=== PATIENT | female | born 1975 | race Hispanic/Latino ===

== ENCOUNTER 2018-05-03 03:43 | Emergency (ER) | payer BC ==
[2018-05-03 04:29] LABS: Urine Blood NEGATIVE (NEG); Urine Glucose NEGATIVE (NEG); Urine Protein NEGATIVE (NEG); Urine Specific Gravity 1.015 (1.005-1.030)
[2018-05-03 05:23] LABS: Absolute Lymphocytes (CBC) 2.1 K/uL (0.7-4.9); Absolute Monocytes 0.7 K/uL (0.1-1.3); Absolute Neutrophil 10.1 K/uL (1.8-8.0); Basophils % 0.6 % (0-1.3); Hematocrit 30.9 % (36.0-45.0); Lymphocytes % 15.9 % (15.3-44.8); MPV 7.3 fL (7.6-11.3); Monocytes % 5.6 % (3.3-12.3); RBC Red Blood Cell Count 4.09 M/uL (3.86-4.86)
[2018-05-03] MEDS ORDERED: NA CHLORIDE 0.9% 1,000 ML ONE (05:27)
[2018-05-03] MEDS ORDERED: KETOROLAC 30 MG/ML INJ ONE (05:27)
[2018-05-03 05:37] LABS: BUN Blood Urea Nitrogen 8 mg/dL (7-18); Bicarbonate 24 mmol/L (21-32); Glucose Level 108 mg/dL (74-106); Potassium 4.2 mmol/L (3.5-5.1); Sodium Level 138 mmol/L (136-145)
[2018-05-03] MEDS ORDERED: HYDROCODONE/APAP 10/325 TAB ONE (06:21)
--- NOTE | 2018-05-03 06:39 | EDPHYS ---
Physician Documentation [facility] Name: Ivonne Vegas Age: 42 yrs Sex: Female : 1975 Arrival Date: 05/03/2018 Time: 03:47 Bed 20 Private MD: ED Physician Lamonte Hahn HPI: 05/03 06:36 This 42 yrs old Female presents to ER via Ambulatory with complaints of gs Abdominal Pain, Back Pain. 06:36 The patient presents with pain that is acute. The symptoms are located in the low back. gs Onset: The symptoms/episode began/occurred yesterday. The pain radiates to the left lower quadrant. Associated signs and symptoms: Pertinent negatives: fever, vomiting. Severity of symptoms: At their worst the symptoms were moderate, in the emergency department the symptoms are unchanged. The patient has experienced similar episodes in the past, a few times. 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 - Social history:: Smoking status: Patient/guardian denies using tobacco, Patient/guardian denies using alcohol. - Ebola Screening: : No symptoms or risks identified at this time. ROS: 06:36 All other systems are negative. gs Exam: 06:36 Head/Face: Normocephalic, atraumatic. Eyes: Pupils equal round and reactive to light, gs extra-ocular motions intact. Lids and lashes normal. Conjunctiva and sclera are non-icteric and not injected. Cornea within normal limits. Periorbital areas with no swelling, redness, or edema. ENT: Nares patent. No nasal discharge, no septal abnormalities noted. Tympanic membranes are normal and external auditory canals are clear. Oropharynx with no redness, swelling, or masses, exudates, or evidence of obstruction, uvula midline. Mucous membranes moist. Neck: Trachea midline, no thyromegaly or masses palpated, and no cervical lymphadenopathy. Supple, full range of motion without nuchal rigidity, or vertebral point tenderness. No Meningismus. Chest/axilla: Normal chest wall appearance and motion. Nontender with no deformity. No lesions are appreciated. Cardiovascular: Regular rate and rhythm with a normal S1 and S2. No gallops, murmurs, or rubs. Normal PMI, no JVD. No pulse deficits. Respiratory: Lungs have equal breath sounds bilaterally, clear to auscultation and percussion. No rales, rhonchi or wheezes noted. No increased work of breathing, no retractions or nasal flaring. Abdomen/GI: Soft, non-tender, with normal bowel sounds. No distension or tympany. No guarding or rebound. No evidence of tenderness throughout. Skin: Warm, dry with normal turgor. Normal color with no rashes, no lesions, and no evidence of cellulitis. MS/ Extremity: Pulses equal, no cyanosis. Neurovascular intact. Full, normal range of motion. Neuro: Awake and alert, GCS 15, oriented to person, place, time, and situation. Cranial nerves II-XII grossly intact. Motor strength 5/5 in all extremities. Sensory grossly intact. Cerebellar exam normal. Normal gait. 06:36 Constitutional: The patient appears alert, awake. 06:36 Back: CVA tenderness, that is moderate, is noted on the left. Vital Signs: 03:50 BP 153 / 77; Pulse 106; Resp 18; Temp 98.6(O); Pulse Ox 97% on R/A; Weight 97.52 kg jb4 (R); Height 5 ft. 1 in. (154.94 cm) (R); Pain 9/10; 05:48 BP 128 / 72; Pulse 102; Resp 18; Pulse Ox 96% on R/A; tl2 07:00 BP 128 / 72; Pulse 96; Resp 18; Pulse Ox 98% on R/A; tl2 03:50 Body Mass Index 40.62 (97.52 kg, 154.94 cm) jb4 MDM: 04:33 Patient medically screened. gs 06:36 Differential diagnosis: sprain, Ureterolithiasis. Data reviewed: vital signs, nurses gs notes. 05/03 04:23 Order name: Urine Dipstick--Ancillary (enter results); Complete Time: 04:33 oe 05/03 04:23 Order name: Urine --Ancillary (enter results); Complete Time: 04:33 oe 05/03 04:33 Order name: CBC with Diff; Complete Time: 05:45 gs 05/03 04:33 Order name: Basic Metabolic Panel; Complete Time: 05:45 gs 05/03 04:33 Order name: CT Stone Protocol gs 05/03 04:15 Order name: Urine Test (obtain specimen); Complete Time: 04:15 oe 05/03 04:15 Order name: Urine Dipstick-Ancillary (obtain specimen); Complete Time: 04:15 oe Administered Medications: 05:21 Drug: TORadol 15 mg Route: IVP; Site: left antecubital; tl2 06:00 Follow up: Response: No adverse reaction; Pain is unchanged, physician notified tl2 05:21 Drug: NS 0.9% 1000 ml Route: IV; Rate: 1000 ml; Site: left antecubital; tl2 07:02 Follow up: IV Status: Completed infusion; IV Intake: 1000ml tl2 06:21 Drug: [place] 10 mg-325 mg 1 tabs Route: PO; tl2 07:03 Follow up: Response: No adverse reaction; Medication administered at discharge. tl2 Disposition: 05/03/18 06:39 Discharged to Home. 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 - Condition is Stable. - Discharge Instructions: Back Pain, Adult. - Prescriptions for Naprosyn 500 mg Oral Tablet - take 1 tablet by ORAL route 2 times per day take with food; 20 tablet. Tylenol- Codeine #3 300-30 mg Oral Tablet - take 2 tablets by ORAL route every 6 hours As needed; 12 tablet. - Medication Reconciliation Form, Thank You Letter, Antibiotic Education, Prescription Opioid Use form. - Follow up: Private Physician; When: 2 - 3 days; Reason: Re-evaluation by your physician. Signatures: Dispatcher [employer] EDGail Resendez RN RN tl2 Dave Osei RN RN jb4 Rian Bennett Gregory, MD MD gs Corrections: (The following items were deleted from the chart) 06:47 06:39 05/03/2018 06:39 Discharged to Home. Impression: Low back pain. Condition is gs Stable. Forms are Medication Reconciliation Form, Thank You Letter, Antibiotic Education, Prescription Opioid Use. Follow up: Private Physician; When: 2 - 3 days; Reason: Re-evaluation by your physician. gs 07:03 06:47 05/03/2018 06:39 Discharged to Home. Impression: Low back pain; Other benign tl2 neoplasm of other parts of uterus. Condition is Stable. Discharge Instructions: Back Pain, Adult. Prescriptions for Naprosyn 500 mg Oral Tablet - take 1 tablet by ORAL route 2 times per day take with food; 20 tablet, Tylenol-Codeine #3 300-30 mg Oral Tablet - take 2 tablets by ORAL route every 6 hours As needed; 12 tablet. and Forms are Medication Reconciliation Form, Thank You Letter, Antibiotic Education, Prescription Opioid Use. Follow up: Private Physician; When: 2 - 3 days; Reason: Re-evaluation by your physician.
--- NOTE | 2018-05-03 06:39 | ER ---
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 It is mainly on my left side and in my private area. When I have to urinate it does not hurt it just feels like a pressure that is uncomfortable. 03:50 Transition of care: patient was not received from another setting of care. Onset of jb4 symptoms was May 02, 2018. Risk Assessment: Do you want to hurt yourself or someone else? Patient reports no desire to harm self or others. Initial Sepsis Screen: Does the patient meet any 2 criteria? No. Patient's initial sepsis screen is negative. Does the patient have a suspected source of infection? No. Patient's initial sepsis screen is negative. Care prior to arrival: None. 03:50 Method Of Arrival: Ambulatory jb4 03:50 Acuity: PITA 3 jb4 Triage Assessment: 03:50 General: Appears in no apparent distress. uncomfortable, Behavior is calm, cooperative, jb4 appropriate for age. Pain: Complains of pain in suprapubic area, right lower quadrant and left lower quadrant Pain radiates to low back area Pain currently is 9 out of 10 on a pain scale. Quality of pain is described as pressure, Pain began 1 day ago. EENT: No signs and/or symptoms were reported regarding the EENT system. Neuro: Level of Consciousness is awake, alert, obeys commands, Oriented to person, place, time, situation. Cardiovascular: Patient's skin is warm and dry. Respiratory: Airway is patent Respiratory effort is even, unlabored, Respiratory pattern is regular, symmetrical. GI: Abdomen is non-distended, obese, Abd is soft X 4 quads Abd is non tender in right upper quadrant and left upper quadrant Abdomen is tender to palpation in suprapubic area, posterior aspect of right lateral abdomen, posterior aspect of left lateral abdomen, right lower quadrant and left lower quadrant. : Reports pain in right in left in suprapubic area flank(s), lower quadrant(s) in lower back. Derm: Skin is intact, Skin is pink, warm \T\ dry. Musculoskeletal: Circulation, motion, and sensation intact. 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 - Social history:: Smoking status: Patient/guardian denies using tobacco, Patient/guardian denies using alcohol. - Ebola Screening: : No symptoms or risks identified at this time. Screenin:50 Abuse screen: Denies threats or abuse. Nutritional screening: No deficits noted. jb4 Tuberculosis screening: No symptoms or risk factors identified. Fall Risk None identified. Assessment: 03:50 General: see triage assessment.. jb4 04:00 GI: Bowel sounds present X 4 quads. jb4 05:15 Reassessment: Patient appears in no apparent distress at this time. Patient and/or tl2 family updated on plan of care and expected duration. Pain level reassessed. Patient is alert, oriented x 3, equal unlabored respirations, skin warm/dry/pink. pt returned from CT, will attempt IV access and administer meds. 05:48 Reassessment: Patient appears in no apparent distress at this time. pt continues to be tl2 in pain, MD notified. Awaiting further orders. 07:00 Reassessment: Patient appears in no apparent distress at this time. Patient and/or tl2 family updated on plan of care and expected duration. Pain level reassessed. Patient is alert, oriented x 3, equal unlabored respirations, skin warm/dry/pink. Pt verbalized understanding of discharge instructions, need for follow up and prescription usage. Vital Signs: 03:50 BP 153 / 77; Pulse 106; Resp 18; Temp 98.6(O); Pulse Ox 97% on R/A; Weight 97.52 kg jb4 (R); Height 5 ft. 1 in. (154.94 cm) (R); Pain 9/10; 05:48 BP 128 / 72; Pulse 102; Resp 18; Pulse Ox 96% on R/A; tl2 07:00 BP 128 / 72; Pulse 96; Resp 18; Pulse Ox 98% on R/A; tl2 03:50 Body Mass Index 40.62 (97.52 kg, 154.94 cm) jb4 ED Course: 03:47 Patient arrived in ED. es 03:50 Arm band placed on right wrist. jb4 03:50 Patient has correct armband on for positive identification. Bed in low position. Call jb4 light in reach. Side rails up X 1. Pulse ox on. NIBP on. 03:59 Triage completed. jb4 04:20 Lamonte Hahn MD is Attending Physician. gs 04:[address] via wheelchair. kw1 04:59 CT completed. Patient tolerated procedure well. [facility] kw1 05:20 Gail Hills, RN is Primary Nurse. tl2 05:20 Inserted saline lock: 22 gauge in left antecubital area, using aseptic technique. Blood tl2 collected. 07:00 No provider procedures requiring assistance completed. IV discontinued, intact, tl2 bleeding controlled, No redness/swelling at site. Pressure dressing applied. Administered Medications: 05:21 Drug: TORadol 15 mg Route: IVP; Site: left antecubital; tl2 06:00 Follow up: Response: No adverse reaction; Pain is unchanged, physician notified tl2 05:21 Drug: NS 0.9% 1000 ml Route: IV; Rate: 1000 ml; Site: left antecubital; tl2 07:02 Follow up: IV Status: Completed infusion; IV Intake: 1000ml tl2 06:21 Drug: [place] 10 mg-325 mg 1 tabs Route: PO; tl2 07:03 Follow up: Response: No adverse reaction; Medication administered at discharge. tl2 Intake: 07:02 IV: 1000ml; Total: 1000ml. tl2 Outcome: 06:39 Discharge ordered by . 07:00 Discharged to home ambulatory, with family. tl2 07:00 Condition: stable 07:00 Discharge instructions given to patient, family, Instructed on discharge instructions, follow up and referral plans. medication usage, Demonstrated understanding of instructions, follow-up care, medications, Prescriptions given X 2. 07:03 Patient left the ED. tl2 Signatures: Dispatcher [employer] Halima Lopez Taylor, RN RN tl2 Dave Osei RN RN jb4 Lamonte Hahn MD MD gs Wilhelm, Kimberly kw1 Corrections: (The following items were deleted from the chart) 05:07 05:04 In radiology for Stone Protocol+CT.[email or web address].[email or web address]. ARSALAN kw1
--- NOTE | 2018-05-03 09:54 | RAD REPORT ---
EXAM DESCRIPTION: CT - Stone Protocol - 05/03/2018 6:51 am CLINICAL HISTORY: Flank pain. ABD PAIN COMPARISON: No comparisons TECHNIQUE: Axial images were obtained without oral or IV contrast. Lack of contrast limits solid org an and vascular assessment. The [id number] spans the entirety of the system partially obscuring uppermost abdomen and lung bases. Coronal reformatted images were obtained and reviewed. All CT scans are performed using dose optimization technique as appropriate and may include automated exposure control or mA/KV adjustment according to patient size. FINDINGS: The lower lung kruse are clear. Imaged portions of the liver and spleen show no suspicious findings on non-contrast imaging. The panc reas and adrenal glands are normal. No pathologic lymphadenopathy in the abdomen or pelvis. No urinary tract stones or obstructive uropathy. No bowel obstruction, free air, free fluid or abscess. Normal appendix noted. No significant bony abnormality. Enlarged 11 x 11 cm pelvic structures noted which may be an enlarged uterus or ovarian mass. IMPRESSION: No urinary tract stones or obstructive uropathy. 11 cm rounded structure in the pelvis compressing the urinary bladder. This may represent an abnormal ly enlarged uterus or an ovarian mass. Recommend follow-up pelvic ultrasound or pelvic MRI assessment .
== END 2018-05-03 07:03 | disposition home or self-care (01) ==
LOC: ER 03:43
DX: D26.9 Other benign neoplasm of uterus, unspecified (principal)
CPT/HCPCS: 36415; 74176; 76377; 80048; 81003; 81025; 85025; 96361; 96374; 99284; J7030

== ENCOUNTER 2019-06-02 07:50 | Day surgery (SDC) | payer OTHER, BC ==
[2019-06-02] MEDS ORDERED: Ringers Lactate 1,000 ML IV ONE (08:18)
[2019-06-02] MEDS ORDERED: propofoL 200 MG/20 ML VIAL IV ONE (09:16)
[2019-06-02] MEDS ORDERED: FENTANYL CITR 100 MCG/2 ML ONE (09:16)
[2019-06-02] MEDS ORDERED: LIDOCAINE 2% MPF 5 ML VIAL ONE (09:18)
[2019-06-02] MEDS ORDERED: MIDAZOLAM HCL 2 MG/2 ML INJ ONE (09:19)
[2019-06-02] MEDS ORDERED: ONDANSETRON 4 MG/2 ML VIAL ONE (09:20)
[2019-06-02] MEDS ORDERED: LIDOCAINE 1% W/EPI 1:100,000 MDV 50 ML VIAL ONE (09:44)
[2019-06-02] MEDS ORDERED: KETOROLAC 30 MG/ML INJ ONE (10:09)
[2019-06-02] MEDS ORDERED: NA CHLORIDE 0.9% 1,000 ML ONE (10:32)
[2019-06-02 12:22] VITALS: BP 153/81; TEMP 97.7; O2SAT 98
--- NOTE | 2019-06-06 03:54 | OP ---
Date of Procedure: 06/02/2019 Surgeon: Angela Wilson MD Preoperative Diagnosis: Menorrhagia. Postoperative Diagnosis: Menorrhagia. Procedure Performed: Hysteroscopy, dilation and curettage. Anesthesia: MAC plus paracervical block. Specimens: Endometrial curettings. Complications: No complications. Drains: No drains. Condition: Stable. Indications: Patient is a 43-year-old with abnormal uterine bleeding and fibroid uterus, enlarged si gnificantly. On lab work, TSH, FSH all normal. Hemoglobin low at 9.5. Sampling prior to definitive treatment was recommended. She had a 7 cm leiomyoma, started on iron b.i.d. Due to problems with t he fibroid and possible difficulty in performing the hysteroscopy, she was brought to the hospital. Description Of Procedure: After informed consent was verified, she was taken back to the OR, placed in a supine fashion on the operating table. After MAC was given, she was placed in dorsal lithotomy position. Pelvic exam was performed, the uterus was enlarged, but mobile. No adnexal masses were no david. Speculum was placed to expose the cervix. Anterior lip injected with 1% lidocaine mixed with 1 :100,000 epinephrine 5 mL was given. Two Allis clamps were placed on the anterior lip at 5 and 10 o' clock positions of cervicovaginal junction. Paracervical block with another 5 mL to 7 mL of the same solution was given. Prepped x3 with Betadine was done. Slimline diagnostic hysteroscope was used t o enter the uterine cavity by traversing through the cervical canal under direct vision. The cavity was empty. Endometrium appeared to be thickened. Both tubal ostia visualized. Cavity undistorted. No impression of the fibroid into the cavity. The scope was removed and endometrial curettings were performed. There was a large amount of tissue that was retrieved. All instruments were removed ins trument. Instrument, needle, and sponge counts were correct at the end of the case. Specimen was whitehead nded off for permanent pathology. She was recovered from anesthesia in the OR and taken to the health system zoë room without any problems. She will follow up with me in 1 week and we will decide on further lopez rgery. MIRIAM/MARIA Voice ID: [id number] Report ID: [id number]
== END 2019-06-02 11:40 | disposition home or self-care (01) ==
LOC: OR 07:50
PROVIDERS: ATTEND Obstetrics & Gynecology
PROC: 0UJD8ZZ Inspection of Uterus and Cervix, Via Natural or Artificial Opening Endoscopic (ICD-10-PCS; 2019-06-02)
PROC: 0UDB7ZX Extraction of Endometrium, Via Natural or Artificial Opening, Diagnostic (ICD-10-PCS; principal; 2019-06-02 10:30)
DX: N85.01 Benign endometrial hyperplasia (principal); D50.0 Iron deficiency anemia secondary to blood loss (chronic); Z90.49 Acquired absence of other specified parts of digestive tract; Z82.3 Family history of stroke
CPT/HCPCS: 58558; 81025; 88305; J2704; J2250; J3010; J7120; J7030; J2405

== ENCOUNTER 2019-11-24 06:19 | Day surgery (SDC) | payer OTHER, BC ==
[2019-11-18 11:56] LABS: Absolute Lymphocytes (CBC) 2.3 K/uL (0.7-4.9); Hematocrit 37.3 % (36.0-45.0); Lymphocytes % 26.1 % (15.3-44.8); RBC Red Blood Cell Count 4.46 M/uL (3.86-4.86)
[2019-11-18 12:11] LABS: Urine Appearance CLEAR; Urine Bilirubin NEGATIVE (NEG); Urine Blood NEGATIVE (NEG); Urine Color YELLOW; Urine Glucose NEGATIVE (NEG); Urine Protein NEGATIVE (NEG); Urine Specific Gravity >=1.030 (1.005-1.030); Urine Urobilinogen 0.2 mg/dL (0.2-1.0); Urine pH 5.5 (5.0-7.0)
[2019-11-18 12:14] LABS: Urine Microscopic Reflex NO UMIC
[2019-11-18 12:19] LABS: Albumin 3.6 g/dL (3.4-5.0); Bilirubin Total 0.2 mg/dL (0.2-1.0); Potassium 3.8 mmol/L (3.5-5.1); Protein, Total 7.8 g/dL (6.4-8.2)
--- NOTE | 2019-11-22 15:38 | EKG ---
Test Date: 2019-11-18 Test Time: 11:05:28 Mergers And Acquisitions Manager: KYLEE MEASUREMENT RESULTS: Intervals: Rate: 78 ME: 150 QRSD: 82 QT: 384 QTc: 437 Fowler: P: 24 ME: 150 QRS: 47 T: 63 INTERPRETIVE STATEMENTS: Normal sinus rhythm Normal ECG No previous ECG available for comparison Electronically Signed On 11-22-19 15:38:09 CDT by Michael Zee
[2019-11-24 06:58] LABS: Specific Gravity 1.025 (1.005-1.030)
[2019-11-24] MEDS ORDERED: Ringers Lactate 1,000 ML IV ONE ×2 (07:04→07:07)
[2019-11-24] MEDS ORDERED: SCOPOLAMINE HYDROBROMIDE PATCH TD ONE (07:04)
[2019-11-24] MEDS ORDERED: BUPIVACAINE 0.25% PF 30 ML VIAL ONE (07:07)
[2019-11-24] MEDS ORDERED: ROCURONIUM 50 MG/5 ML VIAL IV ONE (07:30)
[2019-11-24] MEDS ORDERED: KETOROLAC 30 MG/ML INJ ONE (07:30)
[2019-11-24] MEDS ORDERED: MIDAZOLAM HCL 2 MG/2 ML INJ ONE (07:30)
[2019-11-24] MEDS ORDERED: FENTANYL CITR 250 MCG/5 ML ONE (07:30)
[2019-11-24] MEDS ORDERED: propofoL 200 MG/20 ML VIAL IV ONE (07:30)
[2019-11-24] MEDS ORDERED: ONDANSETRON 4 MG/2 ML VIAL ONE ×2 (07:30→12:57)
[2019-11-24] MEDS ORDERED: dexAMETHasone 10 MG/ML VIAL ONE (07:30)
[2019-11-24] MEDS ORDERED: LIDOCAINE 2% MPF 5 ML VIAL ONE (07:30)
[2019-11-24] MEDS ORDERED: HEPARIN 5000 UNIT/ML 1 ML VIAL ONE (07:53)
[2019-11-24] MEDS ORDERED: CEFAZOLIN/SWI 2gm 2 GM/20 ML SYR ONE (07:53)
[2019-11-24] MEDS ORDERED: NS 0.9% VIAL 10 ML ONE (09:32)
[2019-11-24] MEDS ORDERED: VECURONIUM 10 MG/VIAL IV ONE (09:32)
[2019-11-24] MEDS ORDERED: GLYCOPYRROLATE 0.2 MG/ML SYR ONE (10:31)
[2019-11-24] MEDS ORDERED: NEOSTIGMINE 1 MG/ML -5 ML ONE (10:31)
[2019-11-24] MEDS ORDERED: LABETALOL 20 MG/4ML SYRINGE IV ONE (10:31)
[2019-11-24] MEDS ORDERED: MEPERIDINE HCL 25 MG/ML SYR ONE (10:31)
--- NOTE | 2019-11-24 13:10 | OP ---
Date of Procedure: 11/24/2019 Surgeon: Angela Wilson MD Target Network Analyst: Marisa Kim. Preoperative Diagnoses: Menorrhagia with leiomyomata and chronic iron deficiency anemia. Postoperative Diagnoses: Menorrhagia with leiomyomata and chronic iron deficiency anemia and uterine prolapse. Procedures Performed: Total laparoscopic hysterectomy, bilateral salpingectomy, vaginal morcellation for retrieval of the specimen, uterosacral suspension distally, and cystoscopy. Anesthesia: General endotracheal. Estimated Blood Loss: Minimal. Complications: No complications. Drains: None. Condition: Stable. Findings: Uterus enlarged, large leiomyomata anteriorly, but others present as well. Significant re ctocele and uterine descensus present. Point C was -4. Both ovaries were normal and left intact. Indication: The patient is a 44-year-old, who was evaluated for heavy bleeding, found to have fibroi ds. Endometrial sampling was performed. No atypia or malignancy of endometrium or leiomyosarcoma de tected on the Sampling. She was kept on oral iron. She had a transfusion in the past. Her iron has improved after the transfusion; however, continues to bleed very heavy. All the conservative treatm ent options including uterine artery embolization and Lupron were all reviewed with the patient, and myomectomy. Done with childbearing and wanted to proceed with a hysterectomy for definitive treatmen t, so she was consented and brought to the OR. Before preop appointment, she was identified to have intermittent left-sided chest pain and also with high blood pressure. Was seen by her primary care p faith, Dr. Cortes and was treated; however, the patient decided not to take her blood pressure medic ations because of her concerns regarding the relationship of that to her chest pain. After the Cardi ology consultation, she was cleared for surgery and she was counseled that it is important to take he r antihypertensives regularly and follow up with her primary care provider as well as Dr. Zee. Description Of Procedure: After informed consent was verified she was taken back to the OR, placed i n supine fashion on the operating table, general anesthesia given, placed in a dorsal lithotomy posit ion. 3 g of Ancef were given. 5000 units subcu of heparin were given as her platelet count was elev ated at 393 yesterday and it was over 400 earlier in the week. As compared to her past CBC, her plat elet count was in the same range. It was slightly elevated, so heparin subcu was given. SCDs were s tarted. Then abdomen, vulva, vagina, and perineum were prepped and draped in a sterile fashion. Exa mination was performed. Uterus anteflexed. Enlarge fibroids, uterus were palpated, moderately were rotated and almost 14-week size. The 7 cm fibroid identified on the ultrasound seemed to be on the fundus and on the left. Speculum placed to expose the cervix. Anterior lip grasped with 2 Allis clamps and the VCare, and la rge VCare introduced into place. Horner placed and connected with cysto tubing for retrograde filling . This area was draped. 1 cm supraumbilical incision made with a scalpel using the open laparoscopy technique. Fascia incise d and tagged with 0 Vicryl sutures. S-retractors were placed after entering the peritoneum bluntly. Adequate insufflation was performed and after visualizing the entire pelvic cavity, the patient was placed in Trendelenburg. Both sides anterior and posterior cul-de-sac were all free. No evidence of any endometriosis, so it was very feasible for a laparoscopic hysterectomy. Two 5 ports in the left and right lower quadrants were placed and a 10 port suprapubic after checking the ureter courses on both sides and they were undistorted, proceeded with surgery. The left tube was taken down with the LigaSure. Utero-ovarian ligament taken down, then round ligame nt taken down and broad ligament opened up. Anterior lip of the broad ligament was raised to raise t he bladder flap and the bladder was dissected inferiorly and posteriorly. Dissection performed to th e uterosacral on the left side. Then, the broad ligament was taken down to skeletonize the vessels. The vessels were cauterized with the bipolar basket tip and left in place without cutting and went o maxine to the opposite side to perform the suction. The fibroid had to be retracted in order for me to take the utero-ovarian ligament. Mesosalpinx, tube were removed. Round ligament was taken down. Po sterior broad ligament had to be dissected down to the level of the uterosacral insertion. Then, the anterior leaf of the broad ligament was opened up to connect to the bladder flap. Bladder was disse cted inferiorly over the vaginal cup. Then, vessels were isolated and skeletonized. They were taken down with the help of the basket tip and then cardinal ligaments were also taken down with the help of the basket tip. Then, the LigaSure was used to cauterize and cut again. Similar dissection perfo rmed on the opposite side as well. The uterine vessel had to be re-cauterized on the right side as I was not satisfied with the direction of the cut through the side port, so this was done through the suprapubic port and there was excellent hemostasis. Circumferential colpotomy performed with a monopolar hook blade. The specimen detached./ Then, flattened the patient out and vaginal morcellation was performed with 2 Deavers and Puga retrac tor in the posterior aspect. With a 10 blade using mass clamps, uterine wall was cut staying on top of the pardo. Gradually part of the fibroids in the posterior aspect had to be cut to fit the specim en through the opening. Then, once the largest fibroid was shelled out, then the specimen was retrie chet. The specimen was sent out for permanent pathology. Then, the vaginal occlusion was done with t he sponge and a glove. Thorough irrigation and suction of the cuff were performed. There was excellent hemostasis. Both ur eters had no evidence of any injury. The closure of the vagina was done with simple 0 Vicryl sutures at both angles. Then, distal uterosacral ligament was picked up and it was reattached to the media/instructional designer ior vaginal wall, anterior vaginal wall and then a [id number] stitch was placed to suspend the t op of the vagina to the ligaments and once this was done on the left side, then the right side was do ne in a similar fashion making sure it stayed away from the ureter. Then, the central stitch was sari kendall with 0 Vicryl in a [id number] fashion for good apposition of the anterior and posterior fasc ial pardo, connective tissue pardo. There was good suspension. The point C was -7. The patient did have a large rectocele, which she was not consented for repair and left alone. Cystoscopy was perfo rmed with 17-Urdu sheath 30-degree lens, normal saline, and there were strong jets of urine from carmen th ureteric orifices. Horner was left out. All the trocars were removed under direct vision. Gas was desufflated and injected with Marcaine at the fascia and the skin. Then, umbilical fascial incision closed with the help of tagged 0 Vicryl lopez tures, tied to each other. Then, the subcutaneous brought together with a simple 0 Vicryl stitch. T he suprapubic area was very difficult to get to the fascial incisions and it was in the midline. It had good apposition, very small risk of any site hernia. This was left alone. Deep stitch was place d with 0 Vicryl and all skin incisions closed with interrupted 4-0 Vicryl sutures. Instrument, needl e, and sponge counts were correct at end of the case. EBL was minimal. The patient tolerated the pr ocedure well. She will be recovered and sent home today. She has a prescription for pain and she wi ll follow up for her appointment in 1 week. MIRIAM/MARIA Voice ID: [id number] Report ID: [id number]
[2019-11-24 13:22] VITALS: BP 135/62; TEMP 97.1; O2SAT 99
[2019-11-24] MEDS ORDERED: HYDROCODONE/APAP 5/325 MG TAB ONE (13:43)
== END 2019-11-24 14:40 | disposition home or self-care (01) ==
LOC: OR 06:19
PROVIDERS: ATTEND Obstetrics & Gynecology
PROC: 0UT74ZZ Resection of Bilateral Fallopian Tubes, Percutaneous Endoscopic Approach (ICD-10-PCS; 2019-11-24)
PROC: 0USG7ZZ Reposition Vagina, Via Natural or Artificial Opening (ICD-10-PCS; 2019-11-24)
PROC: 0UT94ZZ Resection of Uterus, Percutaneous Endoscopic Approach (ICD-10-PCS; principal; 2019-11-24 07:30)
DX: D25.9 Leiomyoma of uterus, unspecified (principal); N80.0 Endometriosis of uterus; N88.8 Other specified noninflammatory disorders of cervix uteri; N83.8 Other noninflammatory disorders of ovary, fallopian tube and broad ligament; N92.1 Excessive and frequent menstruation with irregular cycle; D50.0 Iron deficiency anemia secondary to blood loss (chronic); N21.0 Calculus in bladder; I10 Essential (primary) hypertension; N81.4 Uterovaginal prolapse, unspecified; Z11.59 Encounter for screening for other viral diseases
CPT/HCPCS: 93005; 85025; 36415; 86900; 86850; 81025; 86901; 88307; 81003; 80053; 57283; 58573; U0002; J2704; J1644; J2250; J3010; J1100; J2175; J2710; J0690; J7120 ×2; J2405 ×2